=== PATIENT | male | born 1975 | race Caucasian/White ===

== ENCOUNTER 2017-09-15 16:30 | Emergency (ER) | payer OTHER ==
[2017-09-15] MEDS ORDERED: Ketorolac 60 MG/2 ML SDV IM ONE (17:55)
--- NOTE | 2017-09-15 17:56 | EDM.PDOC ---
ED HPI GENERAL MEDICAL PROBLEM - General Chief Complaint: General Stated Complaint: INFECTION GUM/EAR PAIN Time Seen by Provider: 09/15/17 17:40 Source of Information: Reports: Patient History Limitations: Reports: No Limitations - History of Present Illness INITIAL COMMENTS - FREE TEXT/NARRATIVE: HISTORY AND PHYSICAL: History of present illness: [Pt comes to ER c/o L lower jaw/gum pain and pain in his L ear. Has been present since yesterday. The pain is keeping the patient awake at night. He is felt feverish and chilled for the past 24 hours. He's had some nausea due to the pain but no vomiting. He does not have a local dentist. Denies any broken or cracked teeth. No recent injury or trauma. He took one dose of Aleve at 7:30 this morning due to the discomfort. Provided minimal relief.] Review of systems: As per history of present illness and below otherwise all systems reviewed and negative. Past medical history: As per history of present illness and as reviewed below otherwise noncontributory. Surgical history: As per history of present illness and as reviewed below otherwise noncontributory. Social history: No reported history of drug or alcohol abuse. Family history: As per history of present illness and as reviewed below otherwise noncontributory. Physical exam: HEENT: Atraumatic, normocephalic. TMs are injected and erythematous with landmarks clearly visible. Nares are patent no erythema. Throat is clear. Oral mucous membranes are pink and moist. Large cavity to the surface of tooth #18. Abscess formation along the gumline on the anterior surface of the truth. Gum is erythematous and swollen. Acutely tender with palpation. Mild swelling and tenderness along patient's lower jaw. Lungs: Clear to auscultation, breath sounds equal bilaterally. Heart: S1S2, regular rate and rhythm.. Abdomen: Soft, nondistended, nontender. Negative for masses or hepatosplenomegaly. Negative for costovertebral tenderness. Extremities: Atraumatic.Neurovascular unremarkable. Neuro: Awake, alert, oriented. Cranial nerves II through XII unremarkable. Cerebellum unremarkable. Motor and sensory unremarkable throughout. Exam nonfocal. Therapeutics: [Dental balls, Toradol 60 mg IM] Impression: [Dental abscess] Plan: [Prescriptions are sent to [facility] for amoxicillin 500 mg 3 times a day for 10 days, Hydrocodone 5/325mg (#15) si po q 6-8 hours prn pain, Dental balls given in ER, advised him to take Aleve or ibuprofen with these medications. Follow-up with dentist in the next couple of days. He is given a handout with local dentist name and contact information. He is in agreement with today's plan.] Definitive disposition and diagnosis as appropriate pending reevaluation and review of above. Left Tooth/Teeth Pain Score (Numeric/FACES): 8 - Related Data Allergies Allergy/AdvReac Type Severity Reaction Status Date / Time No Known Allergies Allergy Verified 09/15/17 17:09 Home Meds: Home Meds . [No Known Home Meds] 01/17/14 [History] Past Medical History - Past Health History Medical/Surgical History: Denies Medical/Surgical History Dermatologic History: Reports: Melanoma Other Dermatologic History: removed from back - Infectious Disease History Infectious Disease History: Reports: Chicken Pox - Past Surgical History Musculoskeletal Surgical History: Reports: Shoulder Surgery Other Musculoskeletal Surgeries/Procedures:: left shoulder Social & Family History - Family History Family Medical History: Noncontributory - Tobacco Use Smoking Status *Q: Never Smoker Second Hand Smoke Exposure: No - Caffeine Use Caffeine Use: Reports: Coffee - Alcohol Use Days Per Week of Alcohol Use: 2 Number of Drinks Per Day: 3 Total Drinks Per Week: 6 - Recreational Drug Use Recreational Drug Use: No ED ROS GENERAL - Review of Systems Review Of Systems: ROS reveals no pertinent complaints other than HPI. ED EXAM, GENERAL - Physical Exam Exam: See Below Course - Vital Signs Last Recorded V/S: Last Vital Signs Temp 99.9 F 09/15/17 17:12 Pulse 120 H 09/15/17 17:12 Resp 16 09/15/17 17:12 BP 136/91 H 09/15/17 17:12 Pulse Ox 94 L 09/15/17 17:12 - Orders/Labs/Meds Meds: Medications Discontinued Medications Generic Name Dose Route Start Last Admin Trade Name Freq PRN Reason Stop Dose Admin Benzocaine 2 each 09/15/17 18:15 09/15/17 18:37 Hurricaine One 20% MUCMEM 09/15/17 18:16 2 each ONETIME ONE Administration Ketorolac Tromethamine 60 mg 09/15/17 17:55 09/15/17 18:36 Toradol IM 09/15/17 17:56 60 mg ONETIME ONE Administration Lidocaine HCl 15 ml 09/15/17 18:15 09/15/17 18:37 Xylocaine 2% Viscous PO 09/15/17 18:16 15 ml ONETIME ONE Administration Departure - Departure Time of Disposition: 18:15 Disposition: Home, Self-Care 01 Condition: Good Clinical Impression: Dental abscess - Discharge Information Instructions: Dental Abscess, [id number] Referrals: PCP,None [Primary Care Provider] - Forms: ED Department Discharge Additional Instructions: The following information is given to patients seen in the emergency department who are being discharged to home. This information is to outline your options for follow-up care. We provide all patients seen in our emergency department with a follow-up referral. The need for follow-up, as well as the timing and circumstances, are variable depending upon the specifics of your emergency department visit. If you don't have a primary care physician on staff, we will provide you with a referral. We always advise you to contact your personal physician following an emergency department visit to inform them of the circumstance of the visit and for follow-up with them and/or the need for any referrals to a consulting specialist. The emergency department will also refer you to a specialist when appropriate. This referral assures that you have the opportunity for follow-up care with a specialist. All of these measure are taken in an effort to provide you with optimal care, which includes your follow-up. Under all circumstances we always encourage you to contact your private physician who remains a resource for coordinating your care. When calling for follow-up care, please make the office aware that this follow-up is from your recent emergency room visit. If for any reason you are refused follow-up, please contact the [facility] emergency department at and asked to speak to the emergency department charge nurse. [facility] [address] [place] [id number] Follow-up with a dentist in the next 48-72 hours. take medications as prescribed. Return to ER as needed as discussed.
[2017-09-15] MEDS ORDERED: Benzocaine 20% Topical Spray UD MUCMEM ONE (18:15)
[2017-09-15] MEDS ORDERED: Lidocaine 2% Viscous Solution 15 ML Cup PO ONE (18:15)
== END 2017-09-15 18:59 | disposition home or self-care (01) ==
LOC: MW.ED 16:30
DX: K04.7 Periapical abscess without sinus (principal); K02.9 Dental caries, unspecified
CPT/HCPCS: 96372; 99282; A9270; J1885; 99283

== ENCOUNTER 2017-10-12 11:40 | Emergency (ER) | payer SELFPAY ==
--- NOTE | 2017-10-12 11:54 | EDM.PDOC ---
ED HPI GENERAL MEDICAL PROBLEM - General Chief Complaint: General Stated Complaint: oral pain Time Seen by Provider: 10/12/17 11:54 Source of Information: Reports: Patient - History of Present Illness INITIAL COMMENTS - FREE TEXT/NARRATIVE: HISTORY AND PHYSICAL: History of present illness: [Patient presents with dental pain and swelling, he is under the care of dentist /oral surgeon will be following with Saturday, he has completed a 10 day course of amoxicillin and Flagyl on Saturday has had increased swelling concerning the left lower jaw since pain is 4 out of 10 controlled with ibuprofen at this time No fever nausea vomiting chills sweats ] Review of systems: As per history of present illness and below otherwise all systems reviewed and negative. Past medical history: As per history of present illness and as reviewed below otherwise noncontributory. Surgical history: As per history of present illness and as reviewed below otherwise noncontributory. Social history: No reported history of drug or alcohol abuse. Family history: As per history of present illness and as reviewed below otherwise noncontributory. Physical exam: HEENT: Atraumatic, normocephalic, pupils reactive, negative for conjunctival pallor or scleral icterus, mucous membranes moist, throat clear, neck supple, nontender, trachea midline. swelling and tenderness left lower jawline Lungs: Clear to auscultation, breath sounds equal bilaterally, chest nontender. Heart: S1S2, regular, negative for clicks, rubs, or JVD. Abdomen: Soft, nondistended, nontender. Negative for masses or hepatosplenomegaly. Negative for costovertebral tenderness. Pelvis: Stable nontender. Genitourinary: Deferred. Rectal: Deferred. Extremities: Atraumatic, negative for cords or calf pain. Neurovascular unremarkable. Neuro: Awake, alert, oriented. Cranial nerves II through XII unremarkable. Cerebellum unremarkable. Motor and sensory unremarkable throughout. Exam nonfocal. Diagnostics: [ clinical ] Therapeutics: [Cleocin 300 mg 3 times a day #30 no refill ] Impression: [ dental abscess ] Definitive disposition and diagnosis as appropriate pending reevaluation and review of above. - Related Data Allergies Allergy/AdvReac Type Severity Reaction Status Date / Time No Known Allergies Allergy Verified 10/12/17 11:51 Home Meds: Home Meds . [No Known Home Meds] 01/17/14 [History] Past Medical History - Past Health History Medical/Surgical History: Denies Medical/Surgical History Dermatologic History: Reports: Melanoma Other Dermatologic History: removed from back - Infectious Disease History Infectious Disease History: Reports: Chicken Pox - Past Surgical History Musculoskeletal Surgical History: Reports: Shoulder Surgery Other Musculoskeletal Surgeries/Procedures:: left shoulder Social & Family History - Family History Family Medical History: Noncontributory - Tobacco Use Smoking Status *Q: Never Smoker Second Hand Smoke Exposure: No - Caffeine Use Caffeine Use: Reports: Coffee - Alcohol Use Days Per Week of Alcohol Use: 2 Number of Drinks Per Day: 3 Total Drinks Per Week: 6 - Recreational Drug Use Recreational Drug Use: No ED ROS GENERAL - Review of Systems Review Of Systems: ROS reveals no pertinent complaints other than HPI. ED EXAM, GENERAL - Physical Exam Exam: See Below Departure - Departure Time of Disposition: 11:58 Disposition: Home, Self-Care 01 Condition: Good Clinical Impression: Dental abscess - Discharge Information Referrals: PCP,None [Primary Care Provider] - Forms: ED Department Discharge Additional Instructions: Medication as prescribed Return if symptoms persist or worsen Follow-up with dentist as scheduled on Saturday The following information is given to patients seen in the emergency department who are being discharged to home. This information is to outline your options for follow-up care. We provide all patients seen in our emergency department with a follow-up referral. The need for follow-up, as well as the timing and circumstances, are variable depending upon the specifics of your emergency department visit. If you don't have a primary care physician on staff, we will provide you with a referral. We always advise you to contact your personal physician following an emergency department visit to inform them of the circumstance of the visit and for follow-up with them and/or the need for any referrals to a consulting specialist. The emergency department will also refer you to a specialist when appropriate. This referral assures that you have the opportunity for follow-up care with a specialist. All of these measure are taken in an effort to provide you with optimal care, which includes your follow-up. Under all circumstances we always encourage you to contact your private physician who remains a resource for coordinating your care. When calling for follow-up care, please make the office aware that this follow-up is from your recent emergency room visit. If for any reason you are refused follow-up, please contact the [facility] emergency department at and asked to speak to the emergency department charge nurse.
== END 2017-10-12 12:20 | disposition home or self-care (01) ==
LOC: MW.ED 11:40
DX: K04.7 Periapical abscess without sinus (principal)
CPT/HCPCS: 99282